=== PATIENT | male | born 1995 | race African-American/Black ===

== ENCOUNTER 2020-02-28 23:31 | Emergency (ER) | payer SELFPAY ==
[~2020-02-28] VITALS: Ht 182.9 cm; Wt 82.0 kg
[2020-02-29] MEDS ORDERED: SODIUM CHLORIDE 0.9% 1,000 ML IV ONE (00:15)
[2020-02-29 00:40] LABS: BASOPHILS % 0.9 % (0.0-2.0); EOSINOPHILS % 1.4 % (0.0-5.0); HEMATOCRIT. 43.1 % (42.0-52.0); HEMOGLOBIN. 14.3 g/dL (14.0-18.0); LYMPHOCYTES % 24.1 % (20.0-50.0); MEAN CORPUSCULAR HEMOGLOBIN 29.9 pg (28.0-32.0); MONOCYTES % 10.8 % (2.0-8.0); NEUTROPHILS % 62.8 % (40.0-76.0); PLATELET 245 x1000/uL (130-400); RED BLOOD CELL COUNT 4.78 mill/uL (4.7-6.1); RED CELL DISTRIBUTION WIDTH 14.3 % (11.6-14.6)
[2020-02-29 00:52] LABS: CHLORIDE 106 mEq/L (98-107)
[2020-02-29 00:56] LABS: ETHANOL BLOOD 15 mg/dL
[2020-02-29 06:00] VITALS: BP 112/62
== END 2020-02-29 06:36 | disposition home or self-care (01) ==
LOC: ER 23:31
DX: F10.129 Alcohol abuse with intoxication, unspecified (principal); Y90.0 Blood alcohol level of less than 20 mg/100 ml; F23 Brief psychotic disorder
CPT/HCPCS: 36415; 80053; 80307; 80320; 80329; 85025; 93005; 96360; 99284; J7030; G0480